=== PATIENT | male | born 1960 | race Caucasian/White ===

== ENCOUNTER 2019-11-13 18:23 | Inpatient (IN) ==
[2019-11-13] MEDS ORDERED: DUONEB (A & A) INH ONE ×2 (18:49→20:41)
--- NOTE | 2019-11-13 18:56 | PROVIDER DOCUMENTATION ---
HPI-Respiratory General - General Chief Complaint: SEPSIS ALERT - P Stated Complaint: SOB/FLU SX Time Seen by Provider: 11/13/19 18:45 Source: patient Allergies/Adverse Reactions: Patient Allergies Allergy/AdvReac Type Severity Reaction Status Date / Time No Known Allergies Allergy Verified 11/13/19 18:42 Home Medications: Home Medication List Medication Instructions Recorded Confirmed Last Taken Type Albuterol Sulfate [Albuterol 8.5 gm IH Q4-6H PRN PRN #2 12/26/17 Unknown Rx Sulfate Hfa] [email or web address].[email or web address] Azithromycin [Zithromax Z-Flaco] 250 mg PO DIRECTED #1 pkg 12/26/17 Unknown Rx Prednisone 20 mg PO DAILY #5 tablet 12/26/17 Unknown Rx - History of Present Illness-Resp Nature of Presenting Problem: 59 YOM WITH PMH OF COPD PRESENTS WITH C/O COUGH WITH BROWN SPUTUM, SOB, FEVER, CHILLS, NAUSEA, HEADACHE SYMPTOMS INITIALLY BEGAN 3 WEEKS AGO AND HAVE GOTTEN WORSE OVER THE LAST 5 DAYS. HE HAS NOT SEEN PCP. CONTINUES TO SMOKE. DENIES CP, V/D. Quality of Pain: reports: aching Severity in ED: reports: moderate Onset/Duration: reports: other (INITIALLY BEGINING 3 WKS) Timing: reports: still present Exposure: reports: unknown cause Cough Quality/Degree: reports: moderate, productive cough Episode Frequency: occasional episodes Modifying Factors: improves with: rest, sitting upright. worse with: exertion, coughing Associated Symptoms: reports: cough, fever/chills, shortness of breath, wheezing Similar Symptoms Previously?: No Recently seen or treated by another doctor?: No Review of Systems - Adult - REVIEW OF SYSTEMS - ADULT Constitutional: reports: chills, fever. denies: no symptoms reported, see HPI, fatique, night sweats, weight gain, weight loss, other Eyes: reports: no symptoms reported. denies: see HPI, discharge, dry eyes, decreased vision, blurred vision, double vision, eye pain, redness, other Ears, Nose, Mouth & Throat: reports: no symptoms reported. denies: see HPI, ear discharge, ear pain, hearing loss, tinnitus, epistaxis, sinus problem, nose pain, loose teeth, mouth/dental pain, mouth swelling, hoarseness, throat pain, throat swelling, other Cardiovascular: reports: no symptoms reported. denies: see HPI, chest pain, edema, heart murmur, irregular heart rate, orthopnea, palpitations, poor circulation, PND, syncope, other Respiratory: reports: see HPI, cough, shortness of breath, wheezing. denies: no symptoms reported, chronic cough, dyspnea on exertion, excessive sputum production, hemoptysis, pleurisy, other Gastrointestinal: reports: no symptoms reported. denies: see HPI, abdominal pain, hematemesis, constipation, diarrhea, difficulty swallowing, frequent heartburn, nausea, poor appetite, rectal bleeding, vomiting, other Genitourinary: reports: no symptoms reported. denies: see HPI, dysuria, discharge, frequency, flank pain, frequent UTI's, hematuria, hesitency, incontinence, urinary retention, urgency, other Musculoskeletal: reports: muscle aches (GENERALIZED BODY ACHES). denies: no symptoms reported, see HPI, bone pain, back pain, frequent leg cramps, joint pain, joint swelling, muscle weakness, neck pain, other Integumentary: reports: no symptoms reported. denies: see HPI, hives, hair loss, itching, mole changes, nail changes, rash, skin sores/ulcer, skin thickening, other Neurological: reports: no symptoms reported. denies: see HPI, ataxia, dizziness/vertigo, headache/migraines, loss of balance, numbness, paresthesia, seizure, slurred speech, syncope, tremors, other Psychiatric: reports: no symptoms reported. denies: see HPI, anxiety, anti- depressant use, alcohol/drug dependence, depression, emotional problems, insomnia, panic attacks, suicidal thoughts, other Endocrine: reports: no symptoms reported. denies: see HPI, change in skin pigment, excessive sweating, goiter, cold intolerance, heat intolerance, increased hunger, increased thirst, polyuria, other Hematologic/Lymphatic: reports: no symptoms reported. denies: see HPI, blood clots, easy bruising, low blood count, lymphedema, prolonged bleeding, swollen lymph nodes, transfusions, other Allergic/Immunologic: reports: no symptoms reported. denies: see HPI, allergic reactions, allergic rhinitis, asthma, eczema, food allergy, frequent infections, hay fever, hives, positive PPD, urticaria, other Past History - Adult - PAST MEDICAL HISTORY-ADULT Review of Records: reports: Nursing Assessment Review, Social history reviewed & non-contributory. Major Childhood Illnesses: reports: denies history Cardiovascular: reports: denies history Respiratory: reports: denies history Gastrointestinal: reports: denies history, diverticulosis Obstetrical/Gynecological: reports: denies history Genitourinary: reports: denies history Musculoskeletal: reports: denies history Neurological: reports: denies history Endocrine/Immune: reports: denies history Other Conditions: reports: denies history - PRIOR SURGERIES/PROCEDURES Surgical/Procedure History: reports: bowel surgery (colon resection), orthopedic (extremity) (R big toe amputation), other (right lung surgery;) - IMMUNIZATION STATUS Childhood Immunizations: See Nurse Assessment Flu Vaccine: See Nurse Assessment Physical Exam-General - PHYSICAL EXAM-ADULT Initial Vital Signs Reviewed: Yes - CONSTITUTIONAL General Appearance: appears well, alert, no apparent distress - EYES Eyes: PERRL/EOMI, pink conjunctivae - HEAD, EARS, NOSE, MOUTH & THROAT HENMT: normocephalic/atraumatic, moist mucous membranes, normal ENT inspection - NECK Neck: non-tender, full range of motion, supple - RESPIRATORY Respiratory: chest non-tender, no pleuratic chest pain, crackles, wheezing. negative: lungs clear, respiratory distress - CARDIOVASCULAR Cardiovascular: normal peripheral pulses, no edema, no gallop, no JVD, tachycardia (106) - GASTROINTESTINAL (ABDOMEN) Abdominal Exam: normal bowel sounds, non tender, soft - LYMPHATIC Lymphatic: no adenopathy - MUSCULOSKELETAL Back Exam: normal inspection, no CVA tenderness, no vertebral tenderness Peripheral Pulses: radial (R): 2+, radial (L): 2+ - SKIN Integumentary: normal color, normal turgor, warm/dry - NEUROLOGIC Neurologic: grossly normal - PSYCHIATRIC Psych/Mental Status: normal mood/affect, oriented x 3 Progress - PLAN OF CARE/RESULTS Progress/Plan/Lab Results: Vital Signs - 8 hr 11/13/19 18:37 11/13/19 19:09 11/13/19 21:13 Temperature 99.1 F 99.6 F Pulse Rate 106 H 95 H 88 Respiratory Rate 22 20 22 Blood Pressure 191/100 175/115 O2 Sat by Pulse Oximetry 95 92 L 91 L Laboratory Results - last 24 hr 11/13/19 11/13/19 11/13/19 19:27 19:27 19:27 WBC 8.41 RBC 5.23 Hgb 16.2 Hct 51.1 MCV 97.7 MCH 31.0 MCHC 31.7 L RDW Std Deviation 13.6 Plt Count 263 MPV 9.3 Immature Gran % (Auto) 0.2 Neut % (Auto) 80.7 H Lymph % (Auto) 8.8 L [place] % (Auto) 9.3 Eos % (Auto) 0.8 Baso % (Auto) 0.2 Immature Gran # (Auto) 0.02 Neut # (Auto) 6.78 H Lymph # (Auto) 0.74 L [place] # (Auto) 0.78 H Eos # (Auto) 0.07 Baso # (Auto) 0.02 PT 13.1 INR 0.95 PTT (Actin FS) 26.4 D-Dimer, Quantitative Specimen Type Sample Site pH pCO2 pO2 HCO3 Base Excess Oxyhemoglobin ABG O2 Sat (Calculated) ABG O2 Saturation ABG Carboxyhemoglobin ABG Methemoglobin Isaias Test A-a O2 Difference Total Hemoglobin Lactate Liter Flow Blood Gas Modality FiO2 % Sodium 142 Potassium 5.0 Chloride 98 Carbon Dioxide 34 Anion Gap 11 BUN 13 Creatinine 1.1 Estimated GFR/1.73 m2 > 60 BUN/Creatinine Ratio 12 Glucose 107 H Calculated Osmolality 284 Calcium 9.3 Total Bilirubin 0.20 AST 15 ALT 20 Alkaline Phosphatase 66 Creatine Kinase 77 Troponin T High Sens Osc-[id number]-Pqmvfokwxpr Pept Total Protein 7.2 Albumin 4.4 Globulin 3.0 Albumin/Globulin Ratio 2.0 Plasma Lactate Influenza A (Rapid) Influenza B (Rapid) 11/13/19 11/13/19 11/13/19 19:27 19:27 19:27 WBC RBC Hgb Hct MCV MCH MCHC RDW Std Deviation Plt Count MPV Immature Gran % (Auto) Neut % (Auto) Lymph % (Auto) [place] % (Auto) Eos % (Auto) Baso % (Auto) Immature Gran # (Auto) Neut # (Auto) Lymph # (Auto) [place] # (Auto) Eos # (Auto) Baso # (Auto) PT INR PTT (Actin FS) D-Dimer, Quantitative Specimen Type Sample Site pH pCO2 pO2 HCO3 Base Excess Oxyhemoglobin ABG O2 Sat (Calculated) ABG O2 Saturation ABG Carboxyhemoglobin ABG Methemoglobin Isaias Test A-a O2 Difference Total Hemoglobin Lactate Liter Flow Blood Gas Modality FiO2 % Sodium Potassium Chloride Carbon Dioxide Anion Gap BUN Creatinine Estimated GFR/1.73 m2 BUN/Creatinine Ratio Glucose Calculated Osmolality Calcium Total Bilirubin AST ALT Alkaline Phosphatase Creatine Kinase Troponin T High Sens 12 Mai-D-Kkjucvucspg Pept 172 Total Protein Albumin Globulin Albumin/Globulin Ratio Plasma Lactate 2.7 H Influenza A (Rapid) Influenza B (Rapid) 11/13/19 11/13/19 11/13/19 19:27 19:44 20:16 WBC RBC Hgb Hct MCV MCH MCHC RDW Std Deviation Plt Count MPV Immature Gran % (Auto) Neut % (Auto) Lymph % (Auto) [place] % (Auto) Eos % (Auto) Baso % (Auto) Immature Gran # (Auto) Neut # (Auto) Lymph # (Auto) [place] # (Auto) Eos # (Auto) Baso # (Auto) PT INR PTT (Actin FS) D-Dimer, Quantitative 0.52 Specimen Type ARTERIAL Sample Site R RADIAL pH 7.39 pCO2 55 H* pO2 72 HCO3 29.5 H Base Excess 6.2 H Oxyhemoglobin 90.5 L ABG O2 Sat (Calculated) 21.7 ABG O2 Saturation 96.4 ABG Carboxyhemoglobin 4.80 H ABG Methemoglobin 1.2 Isaias Test YES A-a O2 Difference 87.0 Total Hemoglobin 17.1 Lactate 0.80 Liter Flow 3.0 Blood Gas Modality CANNULA FiO2 % 32.0 Sodium Potassium Chloride Carbon Dioxide Anion Gap BUN Creatinine Estimated GFR/1.73 m2 BUN/Creatinine Ratio Glucose Calculated Osmolality Calcium Total Bilirubin AST ALT Alkaline Phosphatase Creatine Kinase Troponin T High Sens Nko-X-Khzajijanbz Pept Total Protein Albumin Globulin Albumin/Globulin Ratio Plasma Lactate Influenza A (Rapid) NEGATIVE Influenza B (Rapid) NEGATIVE Orders Category Date Time Status Admit - [facility] Routine AdmDCTranf 11/13/19 21:14 Active Activity - Bed Rest with BRP ORDERED Care 11/13/19 21:14 Active Cardiac Monitoring DIRECTED Care 11/13/19 18:43 Active IV Insertion ORDERED Care 11/13/19 18:43 Active Notify MD of + Sepsis Screen NOW Care 11/13/19 18:43 Active Notify Physician As Ordered Care 11/13/19 18:43 Active Saline Loc DIRECTED Care 11/13/19 21:14 Active Vital Signs Order ROUTINE Care 11/13/19 21:14 Active Z-Document. for Tele Applied ORDERED Care 11/13/19 21:15 Active Heart Healthy Diet Diet 11/13/19 21:15 Active CHEST-1 VIEW [RAD] Stat Exams 11/13/19 18:43 Completed ABG [RESP] Routine Lab 11/13/19 20:16 Completed BLOOD CULTURE [BLDCUL] Stat Lab 11/13/19 19:44 Ordered CBC WITH DIFF [HEME] Stat Lab 11/13/19 19:27 Completed CK PROFILE [SP CHEM] Stat Lab 11/13/19 19:27 Completed COMPREHENSIVE METABOLIC PANEL [CHEM] Stat Lab 11/13/19 19:27 Completed D-DIMER [COAG] Stat Lab 11/13/19 19:27 Completed Flu [INFLUENZA SCREEN PL] Stat Lab 11/13/19 19:44 Completed LACTATE, PLASMA [CHEM] Q3H Lab 11/13/19 19:27 Completed PRO B-NATRIURETIC PEPTIDE Stat Lab 11/13/19 19:27 Completed PROTIME WITH INR [COAG] Stat Lab 11/13/19 19:27 Completed PTT [COAG] Stat Lab 11/13/19 19:27 Completed TROPONIN T HIGH SENSITIVITY Stat Lab 11/13/19 19:27 Completed 0.9% Sodium Chloride Inj [Ns] 1,000 ml Med 11/13/19 21:14 Active IV 50 mls/hr 0.9% Sodium Chloride Inj [Ns] 1,000 ml Med 11/13/19 20:12 Discontinued IV 999 mls/hr Albuterol 2.5MG/Ipratrop 0.5MG [Duoneb (A & A)] Med 11/13/19 18:49 Discontinued 3 ml INH NOW ONE Albuterol 2.5MG/Ipratrop 0.5MG [Duoneb (A & A)] Med 11/13/19 20:41 Discontinued 3 ml INH NOW ONE Albuterol 2.5MG/Ipratrop 0.5MG [Duoneb (A & A)] Med 11/13/19 23:30 Ordered 3 ml INH RTQ4H Azithromycin [Zithromax] Med 11/13/19 20:34 Discontinued 500 mg PO NOW ONE Methylprednisolone Sod Succ [Solu-Medrol] Med 11/13/19 20:12 Discontinued 125 mg IV NOW ONE Aerosol Treatments Routine Oth 11/13/19 18:49 Completed Aerosol Treatments Routine Oth 11/13/19 20:41 Active Aerosol Treatments Routine Oth 11/13/19 21:15 Active Aerosol Treatments Stat Oth 11/13/19 18:49 Completed Aerosol Treatments Stat Oth 11/13/19 20:41 Active Aerosol Treatments Stat Oth 11/13/19 21:15 Active Oxygen Device Routine Oth 11/13/19 21:14 Active Oxygen Device Stat Oth 11/13/19 18:43 Active Telemetry [OM.EQ] Routine Oth 11/13/19 21:14 Active EKG [EKG] Stat Ther 11/13/19 18:50 Ordered Transfer/Admit Order [TRANSFER] Routine Transfer 11/13/19 21:15 Ordered Result Diagrams: 11/13/19 19:27 11/13/19 19:27 - EKG 1 Time of EKG reading by physician:: 20:00 EKG Read and Signed by:: Ej Bhatia EKG Interpretation (*Must complete 3 of following elements*): Normal Rate: 94 Rhythm: NSR Crystal: normal QRS: normal [place] Interval: normal ST Wave: normal Prior EKG Comparison: no prior EKG - XRAY 1 XRAY Study: Chest Impression: See EMR Report ( EXAM: CHEST-1 VIEW INDICATION: sob TECHNIQUE: One view COMPARISON: 12/26/2017 FINDINGS: The lungs are grossly clear. There is no discrete pleural fluid collection or pneumothorax. The cardiomediastinal silhouette and central vasculature are grossly unremarkable. IMPRESSION: No evidence of acute pathology by plain radiograph. Electronically signed by Reece Marrero 11/13/2019 8:08 PM 11/13/192007 Interpreting Physician: Reece Marrero MD Dictated Date/Time: 11/13/192006 cc: Fer Grimes MD; None,PCP) - CONSULTS/PCP/HOSPITALIST Notification #1 *Consult/PCP/Hospitalist*: DR SIM Time Discussed: 21:17 Consult Disposition: Admit Departure - Departure Date of Disposition Decision: 11/13/19 Time of Disposition Decision: 21:17 DIAGNOSIS: COPD with exacerbation Disposition: ADMITTED INPATIENT 09 Certified Medical Emergency: Emergent Condition: Fair Referrals and Follow-Ups: None,PCP [Primary Care Provider] - - Critical Care Note This patient required my direct & personal management of CC.: No Attestation - Physician/ CAMI Attestation Patient care was provided by Advanced Practice Provider:: Yes Advanced Practice Provider:: Gudelia Okeefe Advanced Practice Provider documentation review:: The Mid-level provider documentation, treatment plan and medical decision making was reviewed by the physician who agrees with all treatment and medical decision making by the MLP. The physician spent face to face time with patient:: No Advanced Practice Provider documentation review:: Supervising physician onsite and consulted in the evaluation and care of this patient. The physician did not have a face to face encounter with the patient.
[2019-11-13 19:50] LABS: BASO# 0.02 X1000 (0.0-0.2); BASO% 0.2 % (0.0-0.8); EOS# 0.07 X1000 (0.0-0.7); EOS% 0.8 % (0.0-10.0); HEMATOCRIT 51.1 % (42.0-52.0); HEMOGLOBIN 16.2 g/dL (14.0-18.0); IMM GRAN# 0.02 X1000 (0.0-0.04); IMM GRAN% 0.2 % (0.0-0.5); LYMPH# 0.74 X1000 (1.2-3.4); LYMPH% 8.8 % (20.5-51.1); MCHC 31.7 g/dL (33-37); MCV 97.7 FL (81-99); MONO# 0.78 X1000 (0.11-0.59); MONO% 9.3 % (1.7-9.3); MPV 9.3 FL (7.4-10.4); NEUT# 6.78 X1000 (1.4-6.5); NEUT% 80.7 % (42.2-75.2); PLT 263 X1000 (130-400); RBC 5.23 XMIL (4.7-6.1); RDW 13.6 % (11.5-14.5); WBC 8.41 X1000 (4.8-10.8)
[2019-11-13 20:01] LABS: INR 0.95; PROTIME 13.1 Seconds (11.0-16.0)
[2019-11-13 20:02] LABS: PTT 26.4 Seconds (22.3-41.8)
--- NOTE | 2019-11-13 20:10 | Diag Imaging Result Doc PS360 ---
EXAM: CHEST-1 VIEW INDICATION: sob TECHNIQUE: One view COMPARISON: 12/26/2017 FINDINGS: The lungs are grossly clear. There is no discrete pleural fluid collection or pneumothorax. The cardiomediastinal silhouette and central vasculature are grossly unremarkable. IMPRESSION: No evidence of acute pathology by plain radiograph. Electronically signed by Reece Marrero 11/13/2019 8:08 PM
[2019-11-13] MEDS ORDERED: NS 1,000 ML IV ONE ×2 (20:12→21:14)
[2019-11-13] MEDS ORDERED: SOLU-MEDROL IV ONE (20:12)
[2019-11-13 20:17] LABS: INFLUENZA A NEGATIVE (NEGATIVE); INFLUENZA B NEGATIVE (NEGATIVE)
[2019-11-13 20:21] LABS: AGAP 11; ALBUMIN 4.4 g/dL (3.5-5.0); ALKALINE PHOSPHATASE 66 U/L (32-122); BUN 13 mg/dL (8-22); CALCIUM 9.3 mg/dL (8.8-10.2); CHLORIDE 98 mmol/L (98-107); CK PROFILE 77 U/L (24-204); COSMO 284; CREATININE 1.1 mg/dL (0.7-1.2); ESTIMATED GFR > 60; GLUCOSE 107 mg/dL (70-104); GOT 15 U/L (10-34); GPT 20 U/L (10-44); SODIUM 142 mmol/L (136-145); TCO2 34 mmol/L (25-35); TOTAL PROTEIN 7.2 g/dL (6.3-8.3)
[2019-11-13 20:27] LABS: BE 6.2 mmoll (-3.0-3.0); BLOOD TYPE ARTERIAL; HCO3-(ACT) 29.5 mmoll (20.0-26.0); METHB 1.2 % (0.0-1.5); O2(CT) 21.7 mL/dL (15.0-23.0); O2HB 90.5 % (95.0-99.0); PO2(98.6) 72 mmHg (60-100); SAMPLE BLOOD; SAO2 96.4 % (95.0-100.0); THB 17.1 g/dL (11.5-17.4); pH(98.6) 7.39 (7.35-7.45)
[2019-11-13 20:30] LABS: ALLEN TEST YES; MODALITY CANNULA; PCO2(98.6) 55 mmHg (35-45)
[2019-11-13] MEDS ORDERED: ZITHROMAX PO ONE (20:34)
[2019-11-13] MEDS ORDERED: SOLU-MEDROL IV SCH (22:24)
[2019-11-13] MEDS ORDERED: DUONEB (A & A) INH PRN (22:24)
[2019-11-13] MEDS ORDERED: ZITHROMAX 500 MG/NS 500 MG/250 ML IVPB IV SCH (22:24)
[2019-11-13] MEDS: TYLENOL PO PRN (22:55)
[2019-11-13] MEDS: DUONEB (A & A) INH SCH (23:24)
--- NOTE | 2019-11-13 23:55 | EKG Report ---
Test Performed on : 11/13/2019 8:00:24 PM Test Reason : SOB Blood Pressure : / mmHG Vent. Rate : 094 BPM Atrial Rate : 094 BPM P-R Int : 146 ms QRS Dur : 072 ms QT Int : 334 ms P-R-T Axes : 060 031 059 degrees QTc Int : 417 ms Normal sinus rhythm. Normal ECG When compared with ECG of 26-DEC-2017 15:52, No significant change was found Unconfirmed Result
[2019-11-14] MEDS: SOLU-MEDROL IV SCH ×3 (03:14→21:28)
[2019-11-14] MEDS: DUONEB (A & A) INH SCH ×6 (03:28→23:02)
[2019-11-14 07:11] LABS: BASO# 0.01 X1000 (0.0-0.2); BASO% 0.2 % (0.0-0.8); HEMATOCRIT 51.6 % (42.0-52.0); HEMOGLOBIN 16.3 g/dL (14.0-18.0); IMM GRAN# 0.02 X1000 (0.0-0.04); IMM GRAN% 0.4 % (0.0-0.5); LYMPH# 0.29 X1000 (1.2-3.4); LYMPH% 5.4 % (20.5-51.1); MCH 30.8 PG (27-31); MCHC 31.6 g/dL (33-37); MCV 97.5 FL (81-99); MONO# 0.09 X1000 (0.11-0.59); MONO% 1.7 % (1.7-9.3); NEUT# 4.94 X1000 (1.4-6.5); NEUT% 92.3 % (42.2-75.2); PLT 272 X1000 (130-400); RBC 5.29 XMIL (4.7-6.1); RDW 13.7 % (11.5-14.5); WBC 5.35 X1000 (4.8-10.8)
[2019-11-14 07:32] LABS: AGAP 11; ALBUMIN 4.1 g/dL (3.5-5.0); ALKALINE PHOSPHATASE 61 U/L (32-122); BUN 11 mg/dL (8-22); CALCIUM 8.8 mg/dL (8.8-10.2); CHLORIDE 98 mmol/L (98-107); COSMO 278; CREATININE 0.8 mg/dL (0.7-1.2); ESTIMATED GFR > 60; GLUCOSE 150 mg/dL (70-104); GOT 14 U/L (10-34); GPT 19 U/L (10-44); POTASSIUM 5.2 mmol/L (3.5-5.1); SODIUM 138 mmol/L (136-145); TCO2 29 mmol/L (25-35); TOTAL PROTEIN 7.6 g/dL (6.3-8.3)
[2019-11-14] MEDS ORDERED: TESSALON PO PRN (07:47)
[2019-11-14] MEDS: MUCINEX PO SCH ×2 (08:31→21:28)
[2019-11-14] MEDS: NICODERM PATCH TD SCH (08:32)
[2019-11-14] MEDS: ROCEPHIN 1 GM in NS 50 ML IV SCH (08:32)
[2019-11-14] MEDS: ZITHROMAX 500 MG/NS 500 MG/250 ML IVPB IV SCH (08:35)
[2019-11-14] MEDS ORDERED: FLU VACCINE IM ONE (09:00)
[2019-11-14] MEDS ORDERED: PNEUMOVAX 23 IM ONE (09:00)
--- NOTE | 2019-11-14 09:31 | Diag Imaging Result Doc PS360 ---
EXAM: CHEST-2 VIEWS HISTORY: dyspnea TECHNIQUE: Two views COMPARISON: 11/13/2019 FINDINGS: The lungs are well expanded. The heart is not enlarged. The vessels are not distended. There are no infiltrates. Tiny right effusion versus pleural thickening. IMPRESSION: Stable chest Electronically signed by Pillo Harris 11/14/2019 9:29 AM
--- NOTE | 2019-11-14 10:12 | HISTORY AND PHYSICAL ---
PRIMARY CARE PHYSICIAN: None. CHIEF COMPLAINT: Shortness of breath. HISTORY OF PRESENT ILLNESS: Mr. Estrada is a 59-year-old, male, who presents with past medical history of COPD, arthritis, and diverticulitis, who presents to the ER with complaints of shortness of breath with cough with steele sputum, nausea, headache, congestion, sore throat, malaise, and dizziness for approximately 3 weeks that has been worsening for the past 4 days. The patient denies any weight change or vision changes, neck pain, excessive thirst, palpitations, chest pain, orthopnea, PND, hemoptysis, vomiting, melena, dysphagia, diarrhea, constipation, dysuria, hematuria, muscle pain, weakness, syncope, vertigo, or any other pertinent symptoms at this time. REVIEW OF SYSTEMS: A 10-point review of systems has been obtained, and all were negative, except what is stated above in the HPI. PAST MEDICAL HISTORY: 1. COPD. 2. Arthritis. 3. Diverticulitis. PAST SURGICAL HISTORY: 1. Colon resection in 2006 from diverticular disease. 2. Some type of lung surgery to the right lung from an empyema in 2007 at [facility]. 3. Right great toe removal. FAMILY HISTORY: Significant for heart disease. SOCIAL HISTORY: The patient lives in [place]. He works as a miguel. The patient admits to smoking 1 pack of cigarettes a day for greater than 40 years. He denies any alcohol use. He does state that he occasionally does smoke marijuana. He denies any use of a cane or a walker, CPAP or BiPAP usage. The patient does state that he does not go to the doctor and does not have a medical doctor. PHARMACY: [facility]. ALLERGIES: No known drug allergies. MEDICATIONS: None. PHYSICAL EXAMINATION: VITAL SIGNS: Temperature 99.1 degrees, pulse rate 106, respiratory rate 22, blood pressure 191/100, O2 saturation 95% on room air. GENERAL: This is a 59-year-old, male. He is lying in the hospital bed. He is well nourished and well developed. He is in no acute distress at present time. HEENT: Atraumatic, normocephalic. Pupils equal, round, reactive to light. Mucous membranes are moist. NECK: Supple. No lymphadenopathy. Trachea is midline. No JVD. CV: Regular rate and rhythm. No murmurs, gallops, or rubs appreciated. RESPIRATORY: There is expiratory wheezing noted throughout. The patient is not moving much air through his lungs. The patient does have a barrel chest. There is some accessory muscle usage noted. Respirations do appear to be nonlabored. GI: Abdomen is soft, nontender, nondistended. Bowel sounds are present x4. GENITOURINARY: No CVA tenderness noted. The patient is voiding without difficulty. NEUROLOGIC: The patient is awake, alert, and oriented, able to follow all commands appropriately. MUSCULOSKELETAL: Full distal strength noted. No abnormalities. No deformities. EXTREMITIES: No clubbing, no cyanosis, no edema. DP and PT pulses are present and palpable. SKIN: Warm, dry, and intact. No rashes. No bruises. No diaphoresis. LABORATORY AND DIAGNOSTIC DATA: Sodium 142, potassium 5.0, BUN 13, creatinine 1.1, estimated GFR greater than 60, glucose 107. Troponin 12. Plasma lactate 2.7. PH 7.39, pCO2 of 55, PO2 of 72, bicarb 29.5, base excess 6.2, oxyhemoglobin 90.5, carboxyhemoglobin 4.8, lactate on gases 0.8, and this is on nasal cannula at 3 L. White blood cell count 8.41, hemoglobin 16.2, hematocrit 51.1, platelet count 263,000. Influenza A and B negative. Chest x-ray shows no evidence of acute pathology. EKG shows normal sinus rhythm with a rate of 94 beats per minute. ASSESSMENT: 1. Acute respiratory failure with hypercapnia. 2. Fever and cough with possible pneumonia. 3. Hypertension. 4. History of colon cancer from diverticular disease. 5. Tobacco dependency. PLAN: Will admit this patient to the medical floor. We will start this patient on IV fluid hydration. Will start this patient on azithromycin and Rocephin for IV antibiotic coverage. We will repeat a chest x-ray, PA and lateral in the morning. Repeat all labs in the morning. Provide this patient with a nicotine patch and smoking cessation information. Start DuoNebs and supplemental O2. Give Tessalon Perles for his cough. Start Mucinex b.i.d. Give steroids of Solu- Medrol 60 IV every 8 hours. Provide this patient with Tylenol p.r.n. Blood cultures have been obtained. Healthy heart diet. Telemetry. Vital signs routine. Lovenox for DVT prophylaxis. The patient is noted to have hypertension. We will monitor this and may have to start the patient on some medication. The patient is not noted to have a history of hypertension. However, the patient does not go to the doctor very often and does not have a filter press tender. We will obtain a lipid profile also in the morning since the patient does have known risk factors. For GI prophylaxis, I will order the patient Pepcid p.o. All other further treatment pending hospital course and laboratory data. Dictated by SONIDO Begum for Bartolome De Luna MD cc: Bartolome De Luna MD MTDD
[2019-11-14] MEDS: LOVENOX SUBQ SCH (12:24)
[2019-11-15] MEDS: SOLU-MEDROL IV SCH ×3 (03:40→20:15)
[2019-11-15] MEDS: DUONEB (A & A) INH SCH ×6 (03:45→23:03)
[2019-11-15 06:07] LABS: AGAP 10; ALBUMIN 3.9 g/dL (3.5-5.0); ALKALINE PHOSPHATASE 55 U/L (32-122); BUN 18 mg/dL (8-22); CHLORIDE 96 mmol/L (98-107); COSMO 276; CREATININE 0.7 mg/dL (0.7-1.2); ESTIMATED GFR > 60; GLUCOSE 130 mg/dL (70-104); GOT 17 U/L (10-34); GPT 21 U/L (10-44); MAGNESIUM 2.1 mg/dL (1.5-2.7); POTASSIUM 5.2 mmol/L (3.5-5.1); SODIUM 136 mmol/L (136-145); TCO2 31 mmol/L (25-35); TOTAL BILIRUBIN < 0.15 mg/dL (0.20-1.00); TOTAL PROTEIN 7.4 g/dL (6.3-8.3)
[2019-11-15] MEDS: PRILOSEC PO SCH (06:08)
[2019-11-15 06:12] LABS: HEMOGLOBIN 15.8 g/dL (14.0-18.0); MCH 30.7 PG (27-31); MCV 99.2 FL (81-99); MPV 9.3 FL (7.4-10.4); RBC 5.14 XMIL (4.7-6.1); RDW 13.9 % (11.5-14.5); WBC 8.42 X1000 (4.8-10.8)
[2019-11-15] MEDS: ROCEPHIN 1 GM in NS 50 ML IV SCH (08:34)
[2019-11-15] MEDS: TYLENOL PO PRN (08:35)
[2019-11-15] MEDS: ZITHROMAX 500 MG/NS 500 MG/250 ML IVPB IV SCH (08:35)
[2019-11-15] MEDS: MUCINEX PO SCH ×2 (08:35→20:16)
--- NOTE | 2019-11-15 08:44 | HISTORY AND PHYSICAL ---
HISTORY: Patient presented to the hospital with increased cough, congestion, increased sputum production, shortness of breath, and fever. Blood pressures were elevated in the ER 175/115 with O2 sats low. We are going to admit him to the hospital, treat his acute hypoxic respiratory failure. Treat his COPD exacerbation. He does appear to be feeling better than he was in the ER. Further orders as needed. cc: Bartolome De Luna MD
[2019-11-15] MEDS: NICODERM PATCH TD SCH (08:48)
[2019-11-15] MEDS: LOVENOX SUBQ SCH (12:06)
--- NOTE | 2019-11-15 22:22 | PROGRESS NOTE ---
DATE: 11/15/2019 SUBJECTIVE: Patient notes overall he is feeling better. He is still having lots of shortness of breath, lots of coughing, still unable to ambulate from the bed to the restroom without feeling as though he needs to take a break due to shortness of breath. PHYSICAL EXAMINATION: Temperature 97.9, pulse 69, respiratory rate 18, BP 160/81.General: Patient is pleasant. He is in moderate respiratory distress. HEENT: Normocephalic. Neck: Supple. Cardiovascular: Regular rate. Chest: Moderate wheezing, moderately labored. No crackles. Abdomen: Soft, obese. Extremities: Moves all extremities. No edema. Neurologic: No focal changes. Skin: No rashes. ASSESSMENT: 1. Acute respiratory failure with hypercapnia. 2. Fever. 3. Mild productive cough. 4. Hypertension. 5. History of colon cancer. 6. Chronic tobacco abuse. PLAN: We will continue the patient in the hospital, continue Solu-Medrol IV every 8 hours, 60 mg without change, due to his moderate wheezing. Continue breathing treatments, oxygen, antibiotics, and will follow. cc: Bartolome De Luna MD
[2019-11-16] MEDS: DUONEB (A & A) INH SCH ×6 (03:27→23:04)
[2019-11-16] MEDS: SOLU-MEDROL IV SCH ×3 (03:29→20:54)
[2019-11-16] MEDS: PRILOSEC PO SCH (06:46)
[2019-11-16] MEDS: ROCEPHIN 1 GM in NS 50 ML IV SCH (08:38)
[2019-11-16] MEDS: MUCINEX PO SCH ×2 (08:38→20:54)
[2019-11-16] MEDS: NICODERM PATCH TD SCH (08:38)
[2019-11-16] MEDS: ZITHROMAX 500 MG/NS 500 MG/250 ML IVPB IV SCH (08:39)
[2019-11-16] MEDS: TYLENOL PO PRN (08:45)
[2019-11-16] MEDS: LOVENOX SUBQ SCH (12:18)
--- NOTE | 2019-11-16 22:42 | PROGRESS NOTE ---
DATE: 11/16/2019 SUBJECTIVE: Patient notes he feels terrible, still having lots of wheezing, coughing, shortness of breath. Denies any chest pain or palpitations. Denies any fevers or chills. States, however, he is actually feeling a little bit better. PHYSICAL EXAMINATION: Temperature 97.8, pulse 95, respiratory rate 18, BP 150/48.General: Patient is pleasant. He is in moderate respiratory distress. HEENT: Normocephalic. Neck: Supple. Cardiovascular: Regular rate. Chest: Decreased breath sounds. Positive wheezing. No crackles. No rhonchi. Moderately labored. Abdomen: Soft, obese, nondistended. Extremities: Moves all extremities. Neurologic: No changes. ASSESSMENT: 1. Acute hypoxic respiratory failure. 2. Acute hypercapnic respiratory failure. 3. Probable pneumonia. 4. Hypertension. 5. Chronic tobacco abuse. PLAN: Continue Solu-Medrol 60 IV q.8. Continue Rocephin, azithromycin, breathing treatments, oxygen, and will follow. cc: Bartolome De Luna MD
[2019-11-17] MEDS: DUONEB (A & A) INH SCH ×6 (03:48→23:09)
[2019-11-17] MEDS: SOLU-MEDROL IV SCH ×2 (04:02→11:53)
[2019-11-17] MEDS: PRILOSEC PO SCH (06:17)
[2019-11-17] MEDS: ROCEPHIN 1 GM in NS 50 ML IV SCH (10:12)
[2019-11-17] MEDS: NICODERM PATCH TD SCH (10:13)
[2019-11-17] MEDS: MUCINEX PO SCH (10:13)
[2019-11-17] MEDS: LOVENOX SUBQ SCH (11:33)
[2019-11-17] MEDS: ZITHROMAX 500 MG/NS 500 MG/250 ML IVPB IV SCH (11:51)
[2019-11-18] MEDS: SOLU-MEDROL IV SCH ×4 (00:17→20:28)
[2019-11-18] MEDS: MUCINEX PO SCH ×3 (00:17→20:28)
[2019-11-18] MEDS: DUONEB (A & A) INH SCH ×6 (03:14→22:58)
--- NOTE | 2019-11-18 03:21 | PROGRESS NOTE ---
DATE: 11/17/2019 SUBJECTIVE: Patient notes that he is feeling better. Still coughing, still short of breath, still wheezing, still unable to ambulate without having to take a break due to the breathing. PHYSICAL EXAMINATION: Vital Signs: Temperature 98 degrees, pulse 99, respiratory rate 18, BP 148/81. General: Patient is very pleasant. He is in mild respiratory distress. HEENT: Normocephalic. Neck: Supple. Cardiovascular: Regular rate. Chest: Positive wheezing but much better air movement. Abdomen: Soft, nondistended. Extremities: Moves all extremities. ASSESSMENT: 1. Chronic obstructive pulmonary disease with exacerbation. 2. Acute hypoxic respiratory failure. 3. Fever. PLAN: We are going to continue patient in the hospital. Continue Solu-Medrol at 60 IV q.8h. Continue azithromycin and Rocephin. Continue breathing treatments, oxygen and we will follow. cc: Bartolome De Luna MD
[2019-11-18] MEDS: PRILOSEC PO SCH (06:11)
[2019-11-18] MEDS: ROCEPHIN 1 GM in NS 50 ML IV SCH (09:32)
[2019-11-18] MEDS: LOVENOX SUBQ SCH (11:37)
[2019-11-18] MEDS: ZITHROMAX 500 MG/NS 500 MG/250 ML IVPB IV SCH (12:37)
[2019-11-18] MEDS: NICODERM PATCH TD SCH (13:51)
--- NOTE | 2019-11-18 19:13 | PROGRESS NOTE ---
DATE: 11/18/2019 SUBJECTIVE: The patient notes that his breathing is improving. He is feeling better. Denies any fevers or chills. PHYSICAL EXAMINATION: Temperature 98 degrees, pulse 97, respiratory rate 18, BP 128/65.General: Patient is pleasant, in no respiratory distress. HEENT: Normocephalic. Neck: Supple. Cardiovascular: Regular rate. Chest: Moderate lately, but actually improved. Better air movement and improved wheezing. Abdomen: Soft, obese. Extremities: Moves all extremities. ASSESSMENT: 1. Chronic obstructive pulmonary disease with exacerbation. 2. Acute hypercapnic and hypoxic respiratory failure, both improving. 3. Tobacco dependency. 4. Hypertension. PLAN: We will continue patient in the hospital, decrease Solu-Medrol, continue antibiotics, and we will follow. cc: Bartolome De Luna MD
[2019-11-19] MEDS: DUONEB (A & A) INH SCH ×6 (03:26→22:44)
[2019-11-19] MEDS: SOLU-MEDROL IV SCH ×2 (03:34→15:15)
[2019-11-19] MEDS: PRILOSEC PO SCH (06:21)
[2019-11-19] MEDS: ZITHROMAX 500 MG/NS 500 MG/250 ML IVPB IV SCH (09:10)
[2019-11-19] MEDS: ROCEPHIN 1 GM in NS 50 ML IV SCH (09:10)
[2019-11-19] MEDS: MUCINEX PO SCH ×2 (09:10→20:46)
[2019-11-19] MEDS: NICODERM PATCH TD SCH (09:16)
[2019-11-19] MEDS: LOVENOX SUBQ SCH (12:46)
--- NOTE | 2019-11-19 18:30 | PROGRESS NOTE ---
DATE: 11/19/2019 SUBJECTIVE: The patient notes that he is feeling a lot today. He denies any fevers or chills currently. Breathing has improved. Denies any chest pain or palpitations. PHYSICAL EXAMINATION: Vital Signs: Reviewed. General: The patient is awake, alert. HEENT: Normocephalic. Neck: Supple. Cardiovascular: Regular rate. Chest: Minimal wheezing. Much improved air movement. Abdomen: Soft, nondistended. Extremities: Moves all extremities. Neurologic: No changes. ASSESSMENT: 1. Chronic obstructive pulmonary disease with exacerbation. Secondary to dust exposure and chronic tobacco abuse. 2. Tobacco abuse. 3. Hypertension. 4. Obesity. PLAN: We are going to continue the patient in the hospital. Decrease her Solu-Medrol to 40 IV q.12h. If he tolerates, recheck a chest x-ray in the a.m.. If this is normal, hopefully he can discharge home over the next day or two. cc: Bartolome De Luna MD
[2019-11-20] MEDS: DUONEB (A & A) INH SCH ×3 (03:22→11:41)
[2019-11-20] MEDS: SOLU-MEDROL IV SCH (04:45)
[2019-11-20 05:03] VITALS: BP 151/92
[2019-11-20 06:10] LABS: HEMATOCRIT 53.1 % (42.0-52.0); HEMOGLOBIN 16.7 g/dL (14.0-18.0); MCH 30.4 PG (27-31); MCHC 31.5 g/dL (33-37); MCV 96.7 FL (81-99); MPV 9.4 FL (7.4-10.4); RBC 5.49 XMIL (4.7-6.1); RDW 13.4 % (11.5-14.5); WBC 9.13 X1000 (4.8-10.8)
[2019-11-20] MEDS: PRILOSEC PO SCH (06:28)
[2019-11-20 06:47] LABS: AGAP 10; ALBUMIN 3.5 g/dL (3.5-5.0); ALKALINE PHOSPHATASE 46 U/L (32-122); BUN 20 mg/dL (8-22); CALCIUM 8.7 mg/dL (8.8-10.2); CHLORIDE 94 mmol/L (98-107); COSMO 276; CREATININE 0.7 mg/dL (0.7-1.2); ESTIMATED GFR > 60; GLUCOSE 91 mg/dL (70-104); GOT 15 U/L (10-34); GPT 46 U/L (10-44); POTASSIUM 4.9 mmol/L (3.5-5.1); SODIUM 137 mmol/L (136-145); TCO2 33 mmol/L (25-35); TOTAL PROTEIN 6.7 g/dL (6.3-8.3)
[2019-11-20] MEDS: NICODERM PATCH TD SCH (08:21)
[2019-11-20] MEDS: MUCINEX PO SCH (08:21)
--- NOTE | 2019-11-20 08:31 | Diag Imaging Result Doc PS360 ---
EXAM: CHEST-2 VIEWS HISTORY: hypoxia TECHNIQUE: PA and Lateral chest x-ray COMPARISON: 11/14/2019, 12/26/2017 FINDINGS: The cardiomediastinal silhouette is within normal limits. The pulmonary vasculature is not congested. There are mildly prominent bilateral interstitial markings. Blunting of the costophrenic angles right greater than left is unchanged. No focal consolidation. IMPRESSION: Stable chest with mildly prominent interstitial markings and mild pleural thickening. Electronically signed by Marcie Carballo 11/20/2019 8:29 AM
[2019-11-20] MEDS ORDERED: ZITHROMAX PO SCH (09:00)
[2019-11-20] MEDS ORDERED: OMNICEF PO SCH (09:00)
[2019-11-20] MEDS: LOVENOX SUBQ SCH (11:47)
--- NOTE | 2019-11-21 08:05 | DISCHARGE SUMMARY ---
ADMISSION DATE: 11/13/2019 DISCHARGE DATE: 11/20/2019 PRIMARY CARE PHYSICIAN: None. ADMISSION DIAGNOSES: 1. Acute respiratory failure with hypercapnia. 2. Fever and cough with possible pneumonia. 3. Hypertension. 4. History of colon cancer from diverticular disease. 5. Tobacco dependency. DISCHARGE DIAGNOSES: 1. An acute chronic obstructive pulmonary disease exacerbation secondary to dust exposure and chronic tobacco abuse. 2. Tobacco abuse. 3. Hypertension. 4. Obesity. SUMMARY OF FINDINGS: This is a 59-year-old male who presented to the ER with complaints of shortness of breath with a cough with steele sputum, nausea, headache, congestion, sore throat, malaise and dizziness for approximately 3 weeks that had been worsening for the past 4 days. He was admitted, started on IV fluid hydration, placed on IV antibiotics, given DuoNeb, supplemental O2, pulmonary toilet, and steroids to wean as he improved. He responded well to the therapy and treatment now felt that he can safely be discharged home with repeat chest x-ray this morning showing a stable chest. DISCHARGE MEDICATIONS: DuoNeb every 4 to 6 hours p.r.n.; azithromycin 250 mg p.o. daily, number 5 with no refills; cefdinir 300 mg p.o. b.i.d., number 10 with no refills; and a Medrol Dosepak to take as directed. TIME SPENT: This is a 35 minute discharge. Dictated by SONIDO Childs for Bartolome De Luna MD cc: SONIDO Childs MD
--- NOTE | 2019-11-21 11:33 | DISCHARGE SUMMARY ---
ADMISSION DATE: 11/13/2019 DISCHARGE DATE: 11/20/2019 HISTORY/HOSPITAL COURSE: Patient presented to the hospital after being exposed to a large amount of dust at work which caused him to have a flare-up of his COPD. He was admitted to the hospital, placed on steroids, which remained at 60 IV every 8 hours for a couple of days due to the severity of his illness. He was eventually able to wean down, and on discharge he is awake, alert. He is able to ambulate with minimal distress. Did discuss with patient that he has to avoid all dust and dust exposure for the next several weeks. PLAN: We will continue antibiotics, breathing treatments, oxygen at home. cc: Bartolome De Luna MD
== END 2019-11-20 14:26 | disposition home or self-care (01) | DRG 190 ==
LOC: P.ED 18:23 → SUATTDRO 18:24 → P.MEDSURG 18:24
PROVIDERS: ATTEND Family Medicine